=== PATIENT | female | born 1950 | race African-American/Black ===

== ENCOUNTER 2020-08-01 13:42 | Emergency (ER) | payer OTHER ==
[~2020-08-01] VITALS: Ht 170.2 cm; Wt 78.9 kg
[2020-08-01 14:00] VITALS: BP 127/77; Ht 170.2 cm; Wt 78.9 kg
== END 2020-08-01 17:26 | disposition home or self-care (01) ==
LOC: ED 13:42
DX: M25.571 Pain in right ankle and joints of right foot (principal); R23.8 Other skin changes; Z88.2 Allergy status to sulfonamides; W57.XXXA Bitten or stung by nonvenomous insect and other nonvenomous arthropods, initial encounter; Y93.89 Activity, other specified; Y92.89 Other specified places as the place of occurrence of the external cause; Y99.8 Other external cause status